=== PATIENT | female | born 1995 | race Caucasian/White ===

== ENCOUNTER → 2016-03-10 | Outpatient (CLI) | payer BC ==
[~2016-03-10] MED LIST: BCPILLS PO
== END | disposition home or self-care (01) ==
LOC: C.PAPS 09:42
PROVIDERS: ATTEND Obstetrics & Gynecology
DX: Z01.419 Encounter for gynecological examination (general) (routine) without abnormal findings (principal)

== ENCOUNTER 2016-04-16 08:54 | Emergency (ER) | payer OTHER, BC ==
[~2016-04-16] VITALS: Ht 167.6 cm; Wt 104.5 kg
[2016-04-16 08:57] VITALS: TEMP 36.7; Ht 167.6 cm; Wt 104.5 kg
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
[2016-04-16] MEDS ORDERED: ACETAMINOPHEN 500 MG TAB PO ONE (10:18)
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
[2016-04-16] MEDS ORDERED: NURSING VERBAL MED ORDER ONE (10:30)
[2016-04-16 11:18] VITALS: BP 156/94; PULSE 73; O2SAT 98
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
== END 2016-04-16 11:19 | disposition home or self-care (01) ==
LOC: C.EDB 08:55 → C.EDA 11:19
DX: S60.222A Contusion of left hand, initial encounter (principal); V47.5XXA Car driver injured in collision with fixed or stationary object in traffic accident, initial encounter; Z79.3 Long term (current) use of hormonal contraceptives; Z83.3 Family history of diabetes mellitus; Z82.49 Family history of ischemic heart disease and other diseases of the circulatory system

== ENCOUNTER → 2017-03-13 | Outpatient (CLI) | payer BC | END | disposition home or self-care (01) | LOC: C.LABSPEC 17:25 | PROVIDERS: ATTEND Physician Assistant | DX: Z01.419 Encounter for gynecological examination (general) (routine) without abnormal findings (principal) ==

== ENCOUNTER → 2017-03-13 | Outpatient (CLI) | payer BC | END | disposition home or self-care (01) | LOC: C.PAPS 10:30 | PROVIDERS: ATTEND Physician Assistant | DX: Z01.419 Encounter for gynecological examination (general) (routine) without abnormal findings (principal); R87.615 Unsatisfactory cytologic smear of cervix ==

== ENCOUNTER → 2017-03-22 | Outpatient (CLI) | payer BC | END | disposition home or self-care (01) | LOC: C.PAPS 09:45 | PROVIDERS: ATTEND Physician Assistant | DX: R87.615 Unsatisfactory cytologic smear of cervix (principal) ==

== ENCOUNTER 2021-12-13 07:43 | Inpatient (IN) ==
[2021-12-13] MEDS ORDERED: LIDOCAINE 1% LOCAL 20 ML VIAL INFIL PRN (09:04)
[2021-12-13] MEDS ORDERED: OXYTOCIN 30 UNITS/500 ML BAG IV PRN ×2 (09:04→15:43)
[2021-12-13 09:48] LABS: Hematocrit (blood only) 35.9 % (34.1-44.9); Hemoglobin 12.6 g/dl (12.0-16.0); Mean Corpuscular Hemoglobin 29.7 pg (25.0-34.0); Mean Corpuscular Hgb Conc 35.1 g/dL (32.0-36.0); Mean Corpuscular Volume 84.7 fL (80.0-100.0); Mean Platelet Volume 10.3 fL (9.4-12.3); Platelet Count 305 K/uL (130-400); RDW Coefficient of Variation 13.5 % (11.5-14.5); RDW Standard Deviation 41.7 fL (36.4-46.3); Red Blood Count 4.24 M/uL (3.93-5.22); White Blood Count 17.44 K/ul (4.8-10.8)
[2021-12-13] MEDS: LACTATED RINGER'S 1,000 ML IV PRN ×3 (11:57→18:03)
[2021-12-13] MEDS ORDERED: ePHEDrine sulfate 50 MG/ML AMP ONE (12:01)
[2021-12-13] MEDS ORDERED: SODIUM CHLORIDE 0.9% INJ 10 ML VIAL ONE (12:02)
[2021-12-13] MEDS ORDERED: fentaNYL citrate 100 MCG/2 ML VIAL ONE (12:02)
[2021-12-13] MEDS ORDERED: BUPIVACAINE 0.25% 30 ML VIAL ONE (12:02)
[2021-12-13] MEDS ORDERED: LIDOCAINE 2%/EPINEPHRINE 1:200,000 20 ML SDV ONE (12:02)
[2021-12-13] MEDS ORDERED: fentaNYL 2MCG/ML ROPIVACAINE 1.25MG/ML 100 ML BAG EPI ONE (12:34)
[2021-12-13] MEDS ORDERED: diphenhydrAMINE 50 MG/ML VIAL IV PRN (12:55)
[2021-12-13] MEDS ORDERED: fentaNYL 2MCG/ML ROPIVACAINE 1.25MG/ML 100 ML BAG EPI PRN (12:55)
[2021-12-13] MEDS ORDERED: ONDANSETRON INJ 2 MG/ML 2 ML VIAL IV PRN (12:55)
[2021-12-13] MEDS ORDERED: ePHEDrine sulfate 50 MG/ML AMP IV PRN (12:55)
[2021-12-13] MEDS ORDERED: NALOXONE HCL 0.4 MG/1 ML VIAL/CARP IV PRN (12:55)
[2021-12-13] MEDS ORDERED: PROMETHAZINE HCL 6.25 MG in SODIUM CHLORIDE 0.9% 50 ML IV PRN (12:55)
[2021-12-13] MEDS ORDERED: NALOXONE HCL 1 MG in SODIUM CHLORIDE 0.9% 1000ML 1,000 ML IV PRN (12:55)
[2021-12-13] MEDS ORDERED: NALBUPHINE HCL INJ 10 MG/ML AMP IV PRN (12:55)
--- NOTE | 2021-12-13 12:55 | Anesthesiology Consultation ---
Date of Service December 13, 2021 Assessment & Plan Chart Review Chart Review: Patient NOT seen in Pre Admission Testing and Acceptable Risk for Labor Epidural Consults Requested none ASA ASA2 Proposed Anesthesia Anesthesia Type: Labor Epidural Risk / Benefits Reviewed With: PT / POA / Parent / Guardian, Accepts Plan and Informed Consent Obtained History Height/Weight Height: 5 ft 7 in Weight: 107.955 kg Allergies Allergy/AdvReac Type Severity Reaction Status Date / Time No Known Allergies Allergy Unknown Verified 09/26/19 10:11 Medications Home Medications Medication Instructions Recorded Confirmed Last Taken acetaminophen 325 mg tablet 325 mg PO QID PRN Pain 12/13/21 12/13/21 12/11/21 21:00 (Tylenol) aspirin 81 mg chewable tablet 81 mg PO DAILY 12/13/21 12/13/21 12/12/21 21:00 prenat.vits,shahida,zcr-fxip-qohsi 1 tab PO DAILY 12/13/21 12/13/21 12/12/21 21:00 Active Medications Generic Name Dose Route Start Last Admin Trade Name Freq PRN Reason Stop Dose Admin Lactated Ringer's 1,000 mls @ 125 mls/hr 12/13/21 09:04 12/13/21 11:57 Lr IV 12/15/21 09:03 999 mls/hr .Q8H PRN Administration L&D Protocol Protocol Past Medical History Medical History Dysmenorrhea Encounter for contraceptive management Encounter for routine gynecological examination Encounter for routine gynecological examination with Papanicolaou smear of cervix Hyperandrogenism Obesity PCOS (polycystic ovarian syndrome) Skin lesion of hand Unsatisfactory cervical Papanicolaou smear Exercise / Class Metabolic Activity II 4-5 Yardwork/Stairs/Walk up hill Past Family History Family History Mother Hypertension Grandfather Hyperlipidemia Grandmother Hyperlipidemia Hyperthyroidism Aunt Hypothyroidism Past Surgical History Surgical History (Updated 12/13/21 @ 08:02 by Carolyn Garcia RN) H/O wisdom tooth extraction Past Anesthesia History No Hx of Anesthesia Complications and No Family Hx of Anesthesia Complications History of PONV No Hx of PONV and No Hx of Motion Sickness Social History Smoking Status: Never smoker Hx Alcohol Use: No Hx Substance Use: No substance use type: does not use Physical Exam Vital Signs Last Vital Signs Temp 36.8 C 12/13/21 12:47 Pulse 69 12/13/21 12:54 Resp 20 12/13/21 12:47 BP 134/77 12/13/21 12:54 Pulse Ox 98 12/13/21 12:52 ENMT Mouth: no dentition abnormality Thyromental Distance: > or= 3.5 Finger Breadths Mallampati Class: II Neck normal visual inspection Respiratory normal respiratory effort Auscultation: lungs clear to auscultation bilaterally Cardiovascular Rate/Rhythm: regular rate and regular rhythm Psychiatric Orientation: alert Testing Laboratory Results 12/13/21 09:34
[2021-12-14] MEDS ORDERED: METHYLERGONOVINE MALEATE 0.2 MG/ML AMP ONE (00:21)
[2021-12-14] MEDS ORDERED: miSOPROStoL 200 MCG TAB ONE (00:23)
[2021-12-14] MEDS ORDERED: DIPHTHERIA/TETANUS/PERTUSSIS 0.5 ML SYR/VIAL IM ONE (00:35)
[2021-12-14] MEDS ORDERED: OXYTOCIN 30 UNITS/500 ML BAG IV PRN (00:35)
[2021-12-14] MEDS ORDERED: METHYLERGONOVINE MALEATE 0.2 MG/ML AMP IM ONE (00:35)
[2021-12-14] MEDS ORDERED: bisacodyL 10 MG SUPP PR PRN (00:35)
[2021-12-14] MEDS ORDERED: ACETAMINOPHEN 325 MG TAB PO PRN (00:35)
[2021-12-14] MEDS ORDERED: BENZOCAINE 20% AER SPR 82.5 GM CAN EXT PRN (00:35)
[2021-12-14] MEDS ORDERED: ACETAMINOPHEN W/CODEINE #3 1 TAB PO PRN (00:35)
[2021-12-14] MEDS ORDERED: miSOPROStoL 200 MCG TAB PR ONE (00:35)
[2021-12-14] MEDS ORDERED: oxyCODONE/ACETAMINOPHEN 5mg/325mg TAB PO PRN (00:35)
[2021-12-14] MEDS ORDERED: HYDROCORTISONE ACETATE 25 MG SUPP PR PRN (00:35)
--- NOTE | 2021-12-14 01:36 | Operative Report (OR) ---
DELIVERY NOTE: She is a 1, para 1, blood type is O positive, group B strep negative, was adm itted at 40 weeks and 4 days in active labor. She was allowed to labor spontaneously, then eventuall y she was about 6 cm, membranes were ruptured surgically. Following this, she requested and received epidural. She obtained good pain relief. We then augmented her contractions with IV Pitocin. At on e point, the Pitocin had to be turned off and restarted because of the deceleration. Eventually, she went to full dilatation, pushed out a live infant via right occiput posterior position over an intac t perineum. Infant was suctioned through the mouth and the nose. There was a tight nuchal cord that could not be reduced. It was clamped and cut. The was then delivered without difficulty. C ord blood was taken. With IV Pitocin and IM Methergine. the placenta was removed intact. Inspectio n of the perineum revealed a first-degree laceration down to the top of the rectal sphincter capsule. The vaginal mucosa was approximated out and to beyond the hymenal ring with a continuous chromic gu t suture. A deep horizontal sutures used to approximate the rectovaginal septum. A separate suture was used to approximate the bulbocavernosus muscle. Separate sutures were used to approximate the pe rineal body and another suture was used to approximate the anterior rectal sphincter capsule. Follow ing this, a running subcuticular suture was used to approximate the perineal skin edges. Following t his, vaginal exam revealed no hematoma formation. Rectal Cytotec was used. There were no stitches t hrough the rectum. Estimated blood loss was 300 mL. Job ID: [id number]
[2021-12-14] MEDS: IBUPROFEN 600 MG TAB PO PRN ×4 (03:03→16:37)
--- NOTE | 2021-12-14 07:51 | Anesthesia Procedure Note ---
Date of Service December 14, 2021 Anesthesia Post Epidural Note Vital Signs Vital Signs: Temp Pulse Resp BP Pulse Ox 37.2 C 88 18 137/66 93 12/14/21 02:05 12/14/21 02:38 12/14/21 02:35 12/14/21 02:38 12/14/21 00:33 Pain Intensity Abdomen: Pain Intensity: 6 Notes Mental Status: alert / awake / arousable Nausea / Vomiting: adequately controlled Pain: adequately controlled Airway Patency, RR, SpO2: stable & adequate BP & HR: stable & adequate Hydration State: stable & adequate Neuraxial Anesthesia: was administered and sensory block is resolving Anesthetic Complications: no major complications apparent and Pt Satisfied with anesthetic care Epidural: Removed without complications and With tip intact
[2021-12-14] MEDS: DOCUSATE SODIUM 100 MG CAP PO SCH ×2 (08:23→19:53)
[2021-12-14] MEDS: PRENATAL VITAMIN 1 TAB PO SCH (08:24)
[2021-12-15] MEDS: IBUPROFEN 600 MG TAB PO PRN ×4 (01:17→20:17)
[2021-12-15 06:48] LABS: Hematocrit (blood only) 31.1 % (34.1-44.9); Hemoglobin 10.5 g/dl (12.0-16.0); Mean Corpuscular Hemoglobin 29.2 pg (25.0-34.0); Mean Corpuscular Hgb Conc 33.8 g/dL (32.0-36.0); Mean Corpuscular Volume 86.4 fL (80.0-100.0); Mean Platelet Volume 10.6 fL (9.4-12.3); Platelet Count 289 K/uL (130-400); RDW Coefficient of Variation 13.5 % (11.5-14.5); RDW Standard Deviation 42.2 fL (36.4-46.3); White Blood Count 20.78 K/ul (4.8-10.8)
--- NOTE | 2021-12-15 09:10 | Obstetrical Progress Note ---
Date of Service December 15, 2021 Assessment & Plan Admission and Anticipated Discharge Date Admission Date: December 13, 2021 Subjective abdomen soft and non tender no calf tenderness ambulating well vaginal bleeding scant hgb 10.5 Results & Data ([facility]) Vital Signs (Past 12 Hours) Vital Signs Temp Pulse Resp BP Pulse Ox O2 Del Method 12/15/21 00:55 36.6 C 65 20 119/76 98 Room Air
[2021-12-15] MEDS: PRENATAL VITAMIN 1 TAB PO SCH (09:44)
[2021-12-15] MEDS: DOCUSATE SODIUM 100 MG CAP PO SCH ×2 (09:44→20:17)
[2021-12-15] MEDS ORDERED: bisacodyL 5 MG TABEC PO SCH (20:00)
[2021-12-16] MEDS: IBUPROFEN 600 MG TAB PO PRN ×4 (00:09→17:23)
[2021-12-16 06:53] LABS: Hematocrit (blood only) 32.7 % (34.1-44.9); Hemoglobin 11.2 g/dl (12.0-16.0)
[2021-12-16] MEDS: PRENATAL VITAMIN 1 TAB PO SCH (08:19)
[2021-12-16] MEDS: DOCUSATE SODIUM 100 MG CAP PO SCH (08:20)
--- NOTE | 2021-12-16 09:10 | Obstetrical Progress Note ---
Date of Service December 16, 2021 Assessment & Plan Admission and Anticipated Discharge Date Admission Date: December 13, 2021 Subjective abdomen soft and non tender ambulating well no calf tenderness vaginal bleeding scant hgb 11.2 Results & Data ([facility]) Vital Signs (Past 12 Hours) Vital Signs Temp Pulse Resp BP 12/16/21 00:10 36.5 C 63 18 144/77 H
== END 2021-12-16 17:57 | disposition home or self-care (01) | DRG 807 ==
LOC: OPB 07:43 → 4S1 07:46 → 4E2 12-14 03:07